=== PATIENT | female | born 1990 | race Caucasian/White ===

== ENCOUNTER 2017-12-08 13:36 | Inpatient (IN) | payer OTHER ==
[~2017-12-08] VITALS: Ht 170.2 cm; Wt 103.6 kg
[~2017-12-08 13:36] MED LIST: PRENATAL1 TA1 PO
[2017-12-16] VITALS (11 sets, daily range): BP systolic 115–130; BP diastolic 69–85; PULSE 84–100; TEMP 98.4–98.5
[2017-12-16 20:12] LABS: BASO # 0.1 (0.0-0.2); BASO % 0.6 % (0.0-2.0); EOS # 0.2 (0.0-0.7); EOS % 1.8 % (0-4.0); GRAN % 68.4 % (42.2-75.2); LYMPH # 1.5 (1.2-3.4); LYMPH % 17.4 % (20.0-51.0); MEAN CELL VOLUME 88 fl (80.0-100.0); MEAN CORPUSCULAR HGB CONC 34 g/dl (33.0-37.0); MEAN PLATELET VOLUME 9.9 fl (7.4-10.4); MONO # 0.9 (0.1-0.6); MONO % 10.4 % (1.7-9.3); PLATELET COUNT 225 K/mm3 (130-400); RED BLOOD COUNT 3.88 M/mm3 (4.10-5.30); REDCELL DISTRIBUTION WIDTH-CV 13.9 % (11.5-14.5)
[2017-12-16 20:14] LABS: HEMOGLOBIN 11.5 g/dl (12.5-16.0); MEAN CORPUSCULAR HEMOGLOBIN 30 pg (27.0-31.0)
[2017-12-17] VITALS (20 sets, daily range): BP systolic 95–125; BP diastolic 54–84; PULSE 74–126; TEMP 97.7–98.4
[2017-12-18] VITALS: BP 104/65; PULSE 80; TEMP 98.1
[2017-12-18 03:15] VITALS: BP 95/58; PULSE 77; TEMP 98.1
[2017-12-18] MEDS ORDERED: IBU800 M1 PO (07:30)
[2017-12-18] MEDS ORDERED: PERCOCET 325 MG1 TA2 PO (07:30)
[2017-12-18 08:44] VITALS: BP 103/61; PULSE 78; TEMP 98.4
== END 2017-12-18 11:45 | disposition home or self-care (01) | DRG 775 ==
LOC: LDR 12-16 06:26 → OB 12-16 19:58 → LDR 12-16 19:58 → OB 12-17 10:00 → LDR 12-22 13:36
PROVIDERS: Student in an Organized Health Care Education/Training Program
PROC: 10E0XZZ Delivery of Products of Conception, External Approach (ICD-10-PCS; principal; 2017-12-17)
PROC: 0KQM0ZZ Repair Perineum Muscle, Open Approach (ICD-10-PCS; 2017-12-17)
DX: O48.0 Post-term pregnancy (principal); O36.0130 Maternal care for anti-D [Rh] antibodies, third trimester, not applicable or unspecified; O70.1 Second degree perineal laceration during delivery; O99.284 Endocrine, nutritional and metabolic diseases complicating childbirth; E03.9 Hypothyroidism, unspecified; Z3A.40 40 weeks gestation of pregnancy; Z37.0 Single live birth
CPT/HCPCS: J2590; J7120